=== PATIENT | female | born 1985 | race Caucasian/White ===

== ENCOUNTER 2022-01-08 20:18 | Inpatient (IN) | payer MEDICAID ==
[~2022-01-08] VITALS: Ht 172.7 cm; Wt 113.4 kg
--- NOTE | 2022-01-08 20:21 | NUR ---
BIBA TAKEN TO BED #1
[2022-01-08 20:24] VITALS: BP 131/74
--- NOTE | 2022-01-08 20:31 | NUR ---
36 YO F BIBA FROM [facility] ER WITH C/C OF COUGH AND SOB X3DAYS. PER EMS PT WAS DIANOSED WITH ASTHMA EXACERBATION. PT WAS GIVEN 2 DUO NEBS AT [place], SOB DECREASED. PT IS 7MONTHS PER EMS PT WAS TRANSFERRED HERE FOR HIGHER LEVEL OF CARE, NEEDS HEART MONITORING. PT DENIES PAIN. DENIES PROBLEMS WITH SO FAR. HX:ASTHMA NKA
--- NOTE | 2022-01-08 20:51 | NUR ---
PT AMBULATED TO AND BACK TO BED. URINE COLLECTED. PT BACK ON MONITOR.
[2022-01-08] MEDS ORDERED: PNV91TAB8 PO (21:07)
[2022-01-08] MEDS ORDERED: FOLI0.8T22 PO (21:07)
--- NOTE | 2022-01-08 21:07 | NUR ---
BEDSIDE HEART RATE USING DOPPLER 195-. PT STATES FETUS IS MOVING NORMALLY, STATES SHE HASNT FELT NOR NOTICED ANY ABNORMALITES SINCE DUO NEB WAS GIVEN.
--- NOTE | 2022-01-08 21:07 | NUR ---
MED RECON COMPLETE. NO WOUNDS PER PT.
--- NOTE | 2022-01-08 21:28 | NUR ---
SWAB COLLECTED AND TAKEN TO LAB.
--- NOTE | 2022-01-08 21:52 | NUR ---
Patient will be admitted to care of [facility]. Admited to TELE. Will go to [email or web address]. Belongings list completed. Report to [facility].
--- NOTE | 2022-01-08 21:52 | NUR ---
Note jose alberto in ED - 01/08/22 at 2206 by MED Patient will be admitted to care of [facility]. Admited to TELE. Will go to [id number]. Belongings list completed. Report to [facility].
--- NOTE | 2022-01-08 21:55 | NUR ---
PATIENT WAS BROUGHT TO [facility]ST UNIT FROM ER AWAKE ALERT VERBALLY RESPONSIVE IN [place] WITH THE CC: SOB DX: ASTHMA EXACERBATION . NO S/S OF RESPIRATORY DISTRESS. ON ROOM AIR. PATIENT IS 30 MONTHS . ABLE TO AMBULATE. SKIN INTACT. MRSA SCREENING DONE. ALL SAFETY PRECAUTIONS ARE IN PLACE. CALL LIGHT WITHIN REACH. NO COMPLAINTS OF PAIN AT THIS TIME. NEEDS ATTENDED AND MET.
[2022-01-08] MEDS: NACL 0.9% 1,000 ML IV SCH (23:15)
[2022-01-09] VITALS: BP 129/76
--- NOTE | 2022-01-09 03:45 | NUR ---
PATIENT COMPLAINED OF SOB, ADMINISTERED O2 AT 2L NC SATING 99%.
[2022-01-09 04:00] VITALS: BP 130/82
[2022-01-09] MEDS: NACL 0.9% 1,000 ML IV SCH ×2 (07:00→17:19)
--- NOTE | 2022-01-09 07:22 | NUR ---
ENDORSED PATIENT TO MORNING SHIFT NURSE FOR CONTINUITY OF CARE.
--- NOTE | 2022-01-09 07:23 | NUR ---
RECEIVED PT FROM BOOKING SUPERVISOR NURSE LACY. PT AWAKE IN BED, RESTING. BREATHING EVEN AND UNLABORED ON 2L NC, WITH EPISODES OF COUGHING. ON DEMONSTRATOR ELECTRIC GAS APPLIANCES. IV SITE ON RAC 20G, RUNNING IVF. CALL LIGHT WITHIN REACH. SAFETY PRECAUTIONS IN PLACE.
[2022-01-09 07:28] LABS: BASOPHILS # (AUTO) 0.1 K/uL (0.00-0.22); BASOPHILS % (AUTO) 0.4 % (0.0-2.0); EOSINOPHILS # (AUTO) 0.2 K/uL (0-0.4); EOSINOPHILS % (AUTO) 1.2 % (0.0-4.0); HEMATOCRIT 31.5 % (36-48); HEMOGLOBIN 10.5 g/dL (12.0-16.0); LYMPHOCYTES # (AUTO) 1.8 K/uL (2.5-16.5); LYMPHOCYTES % (AUTO) 13.6 % (20.5-51.1); MEAN CORPUSCULAR HEMOGLOBIN 25 pg (27-31); MEAN CORPUSCULAR HGB CONC 34 g/dL (33-37); MEAN CORPUSCULAR VOLUME 75.8 fL (80-94); MONOCYTES # (AUTO) 0.6 K/uL (0.8-1.0); MONOCYTES % (AUTO) 4.8 % (1.7-9.3); NEUTROPHILS # (AUTO) 10.7 K/uL (1.8-7.7); PLATELET COUNT (AUTO) 307 K/uL (140-450); RED BLOOD CELL COUNT(AUTO) 4.15 MIL/uL (4.20-5.40); RED CELL DISTRIBUTION WIDTH 14.8 % (11.6-13.7); WHITE BLOOD COUNT (AUTO) 13.4 K/uL (4.8-10.8)
[2022-01-09 08:00] VITALS: BP 128/79
[2022-01-09 08:06] LABS: ALBUMIN 2.3 g/dL (3.4-5.0); CARBON DIOXIDE 22.9 mmol/L (21-32); CREATININE 0.4 mg/dL (0.6-1.3); TOTAL BILIRUBIN 0.2 mg/dL (0.0-1.0)
[2022-01-09 09:03] LABS: ANION GAP 14.2 (8-16); POTASSIUM 4.1 mmol/L (3.5-5.1)
--- NOTE | 2022-01-09 09:21 | NUR ---
RECEIVED PT FROM [employer] ARCHITECT NURSE LACY. PT AWAKE IN BED, RESTING. BREATHING EVEN AND UNLABORED ON 2L NC, WITH EPISODES OF COUGHING. ON TENTERING MACHINE OFF BEARER. IV SITE ON RAC 20G, RUNNING IVF. CALL LIGHT WITHIN REACH. SAFETY PRECAUTIONS IN PLACE. Addendum: 01/09/22 at 0924 by Rios Multani LVN WRONG TIME
--- NOTE | 2022-01-09 10:30 | NUR ---
PT CHECKED AND SEEN BY DR SELF. RECEIVED NEW VERBAL ORDERS FOR PT. HAVING TROUBLE PUTTING ORDERS IN. MADE AWARE AND CALLED I.T. FOR IT BUT STILL NOT FIXED. ORDERS PLACED WRITTEN ORDERS ALTHOUGH THEY WERE RECEIVED VERBAL ORDERS.
--- NOTE | 2022-01-09 11:55 | NUR ---
CALLED TO BEDSIDE FOR ALBUTEROL PRN TREATMENT. PT STATES SHE COUGHS AND IS SOB. BREATH SOUNDS; WHEEZY BILATERALLY. IMPROVED AERATION AFTER TREATMENT. PT RETURNED TO 2L NASAL CANNULA, SATURATION 99%. SCHEDULED PRN ALBUTEROL TREATMENTS START 01/10/2022. WILL CONTINUE TO MONITOR.
[2022-01-09 12:00] VITALS: BP 108/68
[2022-01-09] MEDS ORDERED: ALBUTEROL 0.083% 2.5 MG/3 ML NEBU INH SCH (12:00)
--- NOTE | 2022-01-09 12:00 | NUR ---
RT AT BEDSIDE. PT RECEIVING BREATHING TREATMENT.
--- NOTE | 2022-01-09 13:23 | NUR ---
DID ROUNDS. PT SLEEPING AT THIS TIME. NO DISTRESS NOTED. SAFETY PRECAUTIONS IN PLACE.
--- NOTE | 2022-01-09 15:04 | NUR ---
OFFERED PT SNACKS. PT ATE WELL. NO COMPLAINTS OF SOB. NO COMPLAINTS OF PAIN.
[2022-01-09 16:00] VITALS: BP 136/82
--- NOTE | 2022-01-09 17:35 | NUR ---
SPOKE TO RN PRAVIN OF L&D. PER PRAVIN FHT 145.
--- NOTE | 2022-01-09 18:15 | NUR ---
URINE COLLECTED AND SENT TO LAB.
--- NOTE | 2022-01-09 19:25 | NUR ---
ENDORSED PT TO SCOOPER NURSE ANNEMARIE. ALL NEEDS MET THROUGHOUT SHIFT. PT IS STABLE.
--- NOTE | 2022-01-09 19:30 | NUR ---
RECEIVED PT FROM AM NURSE FOR CONTINUITY OF CARE. PT IS STABLE
[2022-01-09 20:00] VITALS: BP 128/76
[2022-01-10] VITALS: BP 120/62
--- NOTE | 2022-01-10 | NUR ---
PATIEBT ASLEEP. NO S/SX OF SOB NOTED
[2022-01-10] MEDS: NACL 0.9% 1,000 ML IV SCH ×3 (03:00→21:06)
[2022-01-10 04:00] VITALS: BP 124/88
--- NOTE | 2022-01-10 06:00 | NUR ---
PT IS AWAKE, NO COUGH OR SOB NOTED
[2022-01-10 08:00] VITALS: BP 119/88
[2022-01-10 08:47] LABS: BASOPHILS # (AUTO) 0.1 K/uL (0.00-0.22); BASOPHILS % (AUTO) 0.9 % (0.0-2.0); EOSINOPHILS % (AUTO) 6.9 % (0.0-4.0); HEMATOCRIT 32.6 % (36-48); HEMOGLOBIN 10.7 g/dL (12.0-16.0); LYMPHOCYTES # (AUTO) 1.9 K/uL (2.5-16.5); LYMPHOCYTES % (AUTO) 12.9 % (20.5-51.1); MEAN CORPUSCULAR HEMOGLOBIN 25 pg (27-31); MEAN CORPUSCULAR HGB CONC 33 g/dL (33-37); MEAN CORPUSCULAR VOLUME 76.7 fL (80-94); MONOCYTES # (AUTO) 0.6 K/uL (0.8-1.0); MONOCYTES % (AUTO) 3.8 % (1.7-9.3); NEUTROPHILS # (AUTO) 10.9 K/uL (1.8-7.7); NEUTROPHILS % (AUTO) 75.5 % (42.2-75.2); PLATELET COUNT (AUTO) 313 K/uL (140-450); RED BLOOD CELL COUNT(AUTO) 4.25 MIL/uL (4.20-5.40); RED CELL DISTRIBUTION WIDTH 15.1 % (11.6-13.7); WHITE BLOOD COUNT (AUTO) 14.4 K/uL (4.8-10.8)
--- NOTE | 2022-01-10 09:28 | NUR ---
PATIENT HAS BEEN SCREENED AND CATEGORIZED MODERATE NUTRITION RISK. PATIENT WILL BE SEEN WITHIN 3-5 DAYS OF ADMISSION. 01/08/22-01/13/[address]
[2022-01-10 09:31] LABS: ALBUMIN 2.4 g/dL (3.4-5.0); CARBON DIOXIDE 23.4 mmol/L (21-32); CREATININE 0.4 mg/dL (0.6-1.3); TOTAL BILIRUBIN 0.2 mg/dL (0.0-1.0)
--- NOTE | 2022-01-10 10:06 | NUR ---
SATURATION 92% ON ROOM AIR POST HHN THERAPY PLACED ON SUPPLEMENTAL OXYGEN AT 2 LPM VIA NC
[2022-01-10] MEDS: ALBUTEROL 0.083% 2.5 MG/3 ML NEBU INH PRN ×2 (11:08→16:32)
[2022-01-10 11:39] LABS: ANION GAP 13.2 (8-16); POTASSIUM 3.6 mmol/L (3.5-5.1)
[2022-01-10 12:00] VITALS: BP 121/84
--- NOTE | 2022-01-10 12:02 | NUR ---
V/S TAKEN, STABLE. PT NO COMPLAINTS OF SOB AND PAIN. Addendum: 01/11/22 at 0341 by Rios Multani LVN WRONG TIME
[2022-01-10 16:00] VITALS: BP 117/78
--- NOTE | 2022-01-10 16:07 | NUR ---
PATIENT PRESENTING WITH UNCONTROLLED ASTHMA; DRAWING MACHINE OPERATOR TO CONTACT DR. TISHA SELF TO REVIEW PATIENT PULMONARY AND OXYGEN STATUS
--- NOTE | 2022-01-10 16:20 | NUR ---
CALLED DR. TISHA SELF AT [facility] [phone] REVIEWED PULMONARY STATUS WITH UNCONTROLLED ASTHMA; OXYGEN SATURATION TORBO DR. GILES: ALBUTEROL Q4; OXYGEN SATURATION GREATER THAN 92%
[2022-01-10] MEDS: ALBUTEROL 0.083% 2.5 MG/3 ML NEBU INH SCH ×2 (19:17→22:44)
--- NOTE | 2022-01-10 19:25 | NUR ---
RECEIVED PT FROM DAY SHIFT NURSE MIN. PT AWAKE IN BED WITH AT BEDSIDE. A&O4, ABLE TO MAKE NEEDS KNOWN. RESPIRATIONS EVEN AND UNLABORED ON 2L NC. HAS EPISODES OF COUGHING. NO COMPLAINTS OF SOB AND DIFFICULTY BREATHING. NO COMPLAINTS OF PAIN. ON PRODUCTION LINE SOLDERER. IV SITE ON RH 22G INFUSING IVF. SKIN INTACT, WARM AND DRY TO TOUCH. CALL LIGHT WITHIN REACH. SAFETY PRECAUTIONS IN PLACE.
[2022-01-10 20:00] VITALS: BP 119/71
--- NOTE | 2022-01-10 20:45 | NUR ---
SPUTUM CULTURE COLLECTED AND SENT TO LAB.
[2022-01-11] VITALS: BP 118/68
--- NOTE | 2022-01-11 00:02 | NUR ---
V/S TAKEN, STABLE. PT NO COMPLAINTS OF SOB AND PAIN.
--- NOTE | 2022-01-11 00:35 | NUR ---
Patient's Plan of Care was discussed and reviewed with ALMAS VANG
[2022-01-11] MEDS: ALBUTEROL 0.083% 2.5 MG/3 ML NEBU INH SCH ×3 (03:33→10:36)
[2022-01-11 04:00] VITALS: BP 130/76
--- NOTE | 2022-01-11 04:01 | NUR ---
V/S TAKEN. NO SOB. NO PAIN. SAFETY PRECAUTIONS IN PLACE.
--- NOTE | 2022-01-11 07:20 | NUR ---
PATIENT STATES INCREASED SPUTUM PRODUCTION THROUGHOUT EVENING; EVIDENCE BASED ON FOREIGN FOOD SPECIALTY COOK OBSERVATION OF ACCUMULATED AMOUNT OF TISSUE ON BEDSIDE TABLE WITH CLEAR/FROTHY SECRETIONS
--- NOTE | 2022-01-11 07:30 | NUR ---
RECEIVED REPORT FROM INDUSTRIAL SERVICE TECHNICIAN NURSE HARRIET FOR CONTINUITY OF CARE. PATIENT AWAKE HAVING HER BREATHING TREATMENT. ALERT ORIENTED ABLE TO MAKE NEEDS KNOWN RESPIRATION EVEN AND NOT LABORED NO SHORTNESS OF BREATH. IV SITE ON RIGHT HAND LIN 22 RUNNING SALINE AT 100 CC/HOUR. ALL SAFETY MEASURE IN PLACE.
--- NOTE | 2022-01-11 07:35 | NUR ---
ENDORSED PT TO DAY SHIFT NURSE FOR CONTINUITY OF CARE. ALL NEEDS MET THROUGHOUT SHIFT. PT IS STABLE.
[2022-01-11 08:00] VITALS: BP 104/63
[2022-01-11] MEDS: NACL 0.9% 1,000 ML IV SCH (09:07)
--- NOTE | 2022-01-11 09:24 | NUR ---
PATIENT STILL EATING BREAKFAST WITH VISITOR AT BED SIDE.
--- NOTE | 2022-01-11 09:30 | NUR ---
LEFT MESSAGE TO DR. PLACSENCIA FOR DAV CONSULT FOR PATIENT.
[2022-01-11] MEDS ORDERED: ALBU0.0912 IH ×2 (10:33→10:35)
--- NOTE | 2022-01-11 10:36 | NUR ---
PATIENT DISCHARGE THI AFTERNOON; SATURATION 97% ON SUPPLEMENTAL OXYGEN AT 2 LPM VIA NC; POST HHN THERAPY PLACED ON ROOM AIR; ELECTRONIC WARFARE TECHNICIAN TO MONITOR
--- NOTE | 2022-01-11 11:20 | NUR ---
PATIENT ALERT ABLE TO RESPOND VERBALLY BREATHING TREATMENT GIVEN. PATIENT DISCHARGE PACKET GIVEN WITH INSTRUCTION WITH UNDERSTANDING. ALL BELONGING GIVEN. NAME BAND REMOVED AND AND IV SITE REMOVED WITH CATHETER INTACT. PATIENT WHEEL OUT SIDE TO [facility] PRIVATE VEHICLE SAFELY.
== END 2022-01-11 11:20 | disposition home or self-care (01) | DRG 141 ==
LOC: MED 20:18 → MTU 21:00
PROVIDERS: ADMIT Family Medicine; ATTEND Family Medicine
DX: J45.901 Unspecified asthma with (acute) exacerbation (principal); E43 Unspecified severe protein-calorie malnutrition; D72.829 Elevated white blood cell count, unspecified; Z33.1 Pregnant state, incidental; Z20.822 Contact with and (suspected) exposure to COVID-19; Z83.3 Family history of diabetes mellitus
CPT/HCPCS: 36415; 80053; 85025; 87070; 87081; 87086; 87205; 94640; 99285; J7613